=== PATIENT | female | born 2005 ===

== ENCOUNTER 2025-02-14 20:40 | Outpatient (REF) | payer OTHER, SELFPAY ==
[2025-02-17 13:08] LABS: Age Gdln ACOG Testing Note (.); IGP, rfx Aptima HPV ASCU Note (.)
== END 2025-02-14 20:41 | disposition home or self-care (01) ==
LOC: LAB 20:40
PROVIDERS: PCP Obstetrics & Gynecology; Visit Provider Obstetrics & Gynecology
DX: Z01.419 Encounter for gynecological examination (general) (routine) without abnormal findings (principal)
CPT/HCPCS: 88175